=== PATIENT | male | born 1980 | race Caucasian/White ===

== ENCOUNTER 2017-11-15 05:43 | Emergency (ER) | payer BC ==
[~2017-11-15] VITALS: Ht 177.8 cm; Wt 99.8 kg
[2017-11-15 06:39] LABS: BASOPHIL % 1.1 % (0-2); PLATELET COUNT 266 x10^3mcL (130-400)
[2017-11-15 08:00] LABS: CALCIUM 9.1 mg/dL (8.5-10.1); CHLORIDE SERUM 104 mmol/L (98-107); GFR1 > 60 mL/min; GLUCOSE SERUM 130 mg/dL (74-106); POTASSIUM SERUM 4.8 mmol/L (3.5-5.1); SODIUM SERUM 139 mmol/L (136-145)
[2017-11-15 08:03] LABS: microscopic required? NO
[2017-11-15 08:04] LABS: ALBUMIN 4.1 g/dL (3.4-5.0); ALKALINE PHOSPHATASE 69 U/L (46-116); ALT/SGPT 58 U/L (16-63); AMYLASE 45 U/L (25-115); AST/SGOT 25 U/L (15-37); BILIRUBIN TOTAL 0.48 mg/dL (0.20-1.00); HDL CHOLESTEROL 47 mg/dL (40-60); LIPASE 164 IU/L (73-393); TOTAL PROTEIN, SERUM 7.8 g/dL (6.4-8.2)
[2017-11-15 08:10] LABS: CHOLESTEROL 204 mg/dL (<200)
[2017-11-15 08:44] LABS: UA SPECIFIC GRAVITY 1.015 (1.005-1.035); urine erythrocyte NEGATIVE (NEGATIVE)
[2017-11-15 09:44] VITALS: BP 101/58
== END 2017-11-15 09:43 | disposition home or self-care (01) ==
LOC: ED 05:43
PROVIDERS: Emergency Medicine
DX: K80.20 Calculus of gallbladder without cholecystitis without obstruction (principal); K76.0 Fatty (change of) liver, not elsewhere classified
CPT/HCPCS: 83880; J1885; J7030; Q0092